=== PATIENT | male | born 1990 | race Caucasian/White ===

== ENCOUNTER 2018-01-11 11:34 | Emergency (ER) | payer SELFPAY ==
[2018-01-11 11:42] VITALS: BP 132/80; PULSE 92; RESP 15; TEMP 36.8; O2SAT 98
--- NOTE | 2018-01-11 12:33 | ED.GENADUL ---
Disposition Clinical Impression: Skin irritation Disposition: HOME Condition: Stable Instructions: Abrasion (ED) Additional Instructions: If you start noticing vesicles/rash that appears in the same area of discomfort please feel free to return to the emergency department for reassessment or follow-up with your primary care provider for recheck. It is preferred that you do this within the first 48 hours of these occurring to start possible therapy for shingles if that is what this is. Otherwise it is recommended due to high suspicion of superficial irritation from your T-shirt to wear a short sleeve shirt to see if this improves your symptoms. Referrals: Yves Smith MD [Primary Care Provider] - (As needed for reassessment if not improving.) Medical Decision Making - Medical Decision Making Patient presenting to the emergency department with concern for possible shingles. He states 2-3 days of localized irritation to the right posterior shoulder under the axilla and to the chest wall. Physical exam is unremarkable for any rash or vesicular findings but of notation is patient also has sparks line in the same pattern and states he always wears cut off T-shirts. Patient is not in any severe pain and pain is not persistent along the dermatome and the discomfort seems to be through multiple dermatomes not just through 1. I think patient's symptoms are more consistent with localized skin irritation and possible micro abrasions due to irritation from that T-shirt more than shingles at this time. Patient was thoroughly educated on shingles and the need to return within 48 hours if he begins having appearance of rash otherwise to wear short sleeve T-shirt and set of cut off and see if this improves his symptoms. Patient was agreeable to this and states that there were risk for prophylactically just starting shingles medication without any appearance of rash along with this being 3 days into it I would suspect rash to be present. Patient is agreeable to returning for any worsening of symptoms and just watchful waiting. After discussion of diagnosis and plan of care with patient patient agreed and stated no further needs, questions, or concerns at this time. History of Present Illness - General Chief complaint: RashLesion Stated complaint: SHINGLES Time Seen by Provider: 01/11/18 12:33 Source: patient, RN notes reviewed Mode of arrival: ambulatory Limitations: no limitations - History of Present Illness Initial comments: Patient reports 3 days ago he started noticing some irritation to his skin on his right side of his back underneath his arm and onto his chest. He states that he previously had shingles when he was a kid and is wondering if there is recurrence. Patient states that he has not noticed any rash appear but is mostly concerned that if it is shingles his girlfriend has never had the chickenpox and so he did not want to get her ill or sick. Patient denies any fever chills, chest pain, shortness of breath or difficulty breathing. Onset/Timin -: days(s) Location: back, right Severity scale (1-10): 5 Quality: aching Consistency: constant Improves with: none Worsens with: none Associated Symptoms: denies other symptoms Treatments Prior to Arrival: none - Related Data Unknown [No Known Home Meds] 01/11/18 Allergies Allergy/AdvReac Type Severity Reaction Status Date / Time acetaminophen Allergy Unknown SWOLLEN Unverified 01/11/18 11:46 LIPS amoxicillin Allergy Unverified 01/11/18 11:46 ibuprofen Allergy chest Unverified 01/11/18 11:47 tightness naproxen sodium [From Aleve] Allergy HIVES Unverified 01/11/18 11:46 Review of Systems Constitutional: no symptoms reported ENT: denies: throat pain Respiratory: no symptoms reported Skin: as per HPI. denies: rash, lesions, change in color Comment: All other systems reviewed and negative Past Medical History - Past Medical History Medical history: no medical history Surgical history: no surgical history - Social History Smoking status: current everyday smoker Alcohol use: rarely Drug use: none General Exam - General Limitations: no limitations General appearance: alert, in no apparent distress - ENT ENT exam: Present: normal orophraynx - Respiratory Respiratory exam: Present: normal lung sounds bilaterally, other (Patient does have slight tenderness to palpation of skin from right mid scapula underneath the axilla and into the chest wall. There is no signs of erythema, vesicular rash, excoriation.). Absent: respiratory distress, wheezes, rales, rhonchi, stridor - Cardiovascular Cardiovascular Exam: Present: regular rate, normal rhythm, normal heart sounds - Neurological Exam Neurological exam: Present: alert, oriented X3. Absent: altered - Skin Skin exam: Present: warm, dry, intact, normal color. Absent: rash, erythema, vesicles Course Vital Signs - 24 hr 01/11/18 11:42 Temperature 36.8 C Pulse 92 H Respiratory 15 Rate Blood Pressure 132/80 Pulse Oximetry 98
== END 2018-01-11 12:44 | disposition home or self-care (01) ==
PROVIDERS: Emergency Provider Student in an Organized Health Care Education/Training Program; PCP Family Medicine
DX: R21 Rash and other nonspecific skin eruption (principal); Z71.1 Person with feared health complaint in whom no diagnosis is made
CPT/HCPCS: 99281

== ENCOUNTER 2018-04-22 06:22 | Emergency (ER) | payer SELFPAY ==
[2018-04-22 06:27] VITALS: BP 132/82; PULSE 87; RESP 16; TEMP 36.8; O2SAT 97
--- NOTE | 2018-04-22 06:45 | W.ED.GENAD ---
Discharge Plan Disposition Patient Disposition: HOME Condition: Stable Discharge Details Chief Complaint: Sorethroat Clinical Impression: Pharyngitis Primary Care Provider: Yves Smith ED Provider: Vasquez Maldonado Home Meds and New Rx's Prescriptions: No Action No Known Home Meds RF: 0 Discharge Instructions Instructions: Pharyngitis (ED) Additional Instructions: Small, frequent sips of fluids to maintain hydration. We will call you if your strep culture is positive. Return to the emerge department for any acute concerns. Discharge Data Discharge Date/Time-TO BE ENTERED AT DEPARTURE: 04/22/18 06:53 Medical Decision Making 27-year-old male presents with sore throat over 2 days time. He is afebrile, well-appearing, with reassuring exam. Differential diagnosis includes viral process versus streptococcal pharyngitis. Rapid strep test obtained and negative. It is being sent for culture. Patient offered a single dose of oral dexamethasone for its anti-inflammatory properties, which he ultimately decided to decline. Discussed with him home management, return precautions. He stable for outpatient management, will need to be contacted should his culture become positive HPI General Mode of arrival: ambulatory. Date/Time Provider Initiated Documentation: 04/22/18 06:41. Limitations to Documentation: no limitations. Information obtained by: patient. History of Present Illness 27 year old M presents to the emergency department with the chief complaint of Sore throat times 2 days, described as moderate, Quality is described as aching, Patient reports no radiation. Patient started experiencing this day(s) and it has been constant. No relieving factors improve symptom(s), Eating worsens symptoms . Patient notes denies fever/chills and nausea/vomiting. Patient did receive the following treatments prior to arrival, none Related Data Home Medications Medication Instructions Recorded Confirmed Unknown [No Known Home Meds] 01/11/18 04/22/18 Allergies Allergy/AdvReac Type Severity Reaction Status Date / Time acetaminophen Allergy Unknown SWOLLEN Unverified 04/22/18 06:30 LIPS amoxicillin Allergy Unverified 04/22/18 06:30 ibuprofen Allergy chest Unverified 04/22/18 06:30 tightness naproxen sodium [From Aleve] Allergy HIVES Unverified 04/22/18 06:30 General Stated Complaint: Sorethroat DONNA: 5 Review of Systems Review of Systems For systems reviewed and otherwise negative PFSH Social History Smoking/Tobacco Use Status: Current every day Exam Narrative Exam Narrative: GEN: awake, alert, oriented 3. Pleasant, well groomed, interactive. HEAD: Normocephalic, atraumatic ENT: Mucous membranes moist, oropharynx erythematous without exudate and without swelling or asymmetry, External ear exam unremarkable, tympanic membranes clear bilaterally EYES: PERRL, EOMI NECK: Full ROM, no DARELL, no menigismus CHEST/RESP: Nontender, clear to auscultation bilateral, no wheeze/rhonchi/rales CARDIOVASCULAR: RRR, no murmur, rub marlen. 2+ Rad pulse bilateral ABDOMEN: Soft, nontender, no mass. +Bowel sounds EXT: Full ROM, no edema, no rash Neuro: Grossly normal neurologic exam, conversant, interactive. Psych: Speech fluent, thoughts congruent, affect normal Course Vital Signs Temperature 36.8 C 04/22/18 06:27 Pulse 87 04/22/18 06:27 Respiratory Rate 16 04/22/18 06:27 Blood Pressure 132/82 04/22/18 06:27 Pulse Oximetry 97 04/22/18 06:27 Temperature 36.8 C 04/22/18 06:27 Temperature Source Skin 04/22/18 06:27 Pulse 87 04/22/18 06:27 Respiratory Rate 16 04/22/18 06:27 Respiratory Effort Non-Labored 04/22/18 06:29 Blood Pressure 132/82 04/22/18 06:27 Pulse Oximetry 97 04/22/18 06:27 Pain Level 5 04/22/18 06:27 Lab/Test Results Lab/Test Results: 04/22/18 06:41 Tonsil - Not Specified Streptococcus Screen (EDMUND) - Pending POC Strep Test-GAYLA(Rapid) Start: 04/22/18 06:30 Freq: .Rapid Strep Test Status: Active Protocol: Document 04/22/18 06:41 SF (Rec: 04/22/18 06:41 [id number]) Strep test-GAYLA(Rapid)-POC POC-Strep test-GAYLA (Rapid) Negative POC-Strep test-GAYLA (Rapid) Negative
--- NOTE | 2018-04-22 06:48 | ED.GENADUL_ITS ---
Discharge Plan Disposition Patient Disposition: HOME Condition: Stable Discharge Details Chief Complaint: Sorethroat Clinical Impression: Pharyngitis Primary Care Provider: Yves Smith ED Provider: Vasquez Maldonado Home Meds and New Rx's Prescriptions: No Action No Known Home Meds RF: 0 Discharge Instructions Instructions: Pharyngitis (ED) Additional Instructions: Small, frequent sips of fluids to maintain hydration. We will call you if your strep culture is positive. Return to the emerge department for any acute concerns. Discharge Data Discharge Date/Time-TO BE ENTERED AT DEPARTURE: 04/22/18 06:53 Medical Decision Making 27-year-old male presents with sore throat over 2 days time. He is afebrile, well-appearing, with reassuring exam. Differential diagnosis includes viral process versus streptococcal pharyngitis. Rapid strep test obtained and negative. It is being sent for culture. Patient offered a single dose of oral dexamethasone for its anti-inflammatory properties, which he ultimately decided to decline. Discussed with him home management, return precautions. He stable for outpatient management, will need to be contacted should his culture become positive HPI General Mode of arrival: ambulatory . Date/Time Provider Initiated Documentation: 04/22/18 06:41 . Limitations to Documentation: no limitations . Information obtained by: patient . History of Present Illness 27 year old M presents to the emergency department with the chief complaint of Sore throat times 2 days, described as moderate, Quality is described as aching, Patient reports no radiation. Patient started experiencing this day( s) and it has been constant. No relieving factors improve symptom(s), Eating worsens symptoms . Patient notes denies fever/chills and nausea/ vomiting. Patient did receive the following treatments prior to arrival, none Related Data Home Medications Medication Instructions Recorded Confirmed Unknown [No Known Home Meds] 01/11/18 04/22/18 Allergies Allergy/AdvReac Type Severity Reaction Status Date / Time acetaminophen Allergy Unknown SWOLLEN Unverified 04/22/18 06:30 LIPS amoxicillin Allergy Unverified 04/22/18 06:30 ibuprofen Allergy chest Unverified 04/22/18 06:30 tightness naproxen sodium [From Aleve] Allergy HIVES Unverified 04/22/18 06:30 General Stated Complaint: Sorethroat DONNA: 5 Review of Systems Review of Systems For systems reviewed and otherwise negative PFSH Social History Smoking/Tobacco Use Status: Current every day Exam Narrative Exam Narrative: GEN: awake, alert, oriented 3. Pleasant, well groomed, interactive. HEAD: Normocephalic, atraumatic ENT: Mucous membranes moist, oropharynx erythematous without exudate and without swelling or asymmetry, External ear exam unremarkable, tympanic membranes clear bilaterally EYES: PERRL, EOMI NECK: Full ROM, no DARELL, no menigismus CHEST/RESP: Nontender, clear to auscultation bilateral, no wheeze/rhonchi/rales CARDIOVASCULAR: RRR, no murmur, rub marlen. 2+ Rad pulse bilateral ABDOMEN: Soft, nontender, no mass. +Bowel sounds EXT: Full ROM, no edema, no rash Neuro: Grossly normal neurologic exam, conversant, interactive. Psych: Speech fluent, thoughts congruent, affect normal Course Vital Signs Temperature 36.8 C 04/22/18 06:27 Pulse 87 04/22/18 06:27 Respiratory Rate 16 04/22/18 06:27 Blood Pressure 132/82 04/22/18 06:27 Pulse Oximetry 97 04/22/18 06:27 Temperature 36.8 C 04/22/18 06:27 Temperature Source Skin 04/22/18 06:27 Pulse 87 04/22/18 06:27 Respiratory Rate 16 04/22/18 06:27 Respiratory Effort Non-Labored 04/22/18 06:29 Blood Pressure 132/82 04/22/18 06:27 Pulse Oximetry 97 04/22/18 06:27 Pain Level 5 04/22/18 06:27 Lab/Test Results Lab/Test Results: 04/22/18 06:41 Tonsil - Not Specified Streptococcus Screen (EDMUND) - Pending POC Strep Test-GAYLA(Rapid) Start: 04/22/18 06: 30 Freq: .Rapid Strep Test Status: Active Protocol: Document 04/22/18 06:41 SF (Rec: 04/22/18 06:41 [id number]) Strep test-GAYLA(Rapid)-POC POC-Strep test-GAYLA (Rapid) Negative POC-Strep test-GAYLA (Rapid) Negative
== END 2018-04-22 06:53 | disposition home or self-care (01) ==
LOC: ER 06:54
PROVIDERS: Emergency Provider Emergency Medicine; PCP Family Medicine
DX: J02.9 Acute pharyngitis, unspecified (principal); F17.210 Nicotine dependence, cigarettes, uncomplicated
CPT/HCPCS: 87880; 99282; 87081; J8540

== ENCOUNTER 2018-07-16 07:44 | Emergency (ER) | payer SELFPAY ==
[2018-07-16 07:55] VITALS: BP 148/65; PULSE 82; RESP 16; TEMP 37; O2SAT 99
--- NOTE | 2018-07-16 08:29 | W.ED.GENAD ---
Discharge Plan Disposition Patient Disposition: HOME Condition: Stable Discharge Details Chief Complaint: Sorethroat Clinical Impression: Pharyngitis Primary Care Provider: Yves Smith ED Provider: Willie Moon Home Meds and New Rx's Prescriptions: No Action No Known Home Meds RF: 0 Discharge Instructions Instructions: Pharyngitis (ED) Additional Instructions: He may use [id number] sore throat medication just take as directed on packaging. You may also use [id number] Zicam as directed on packaging to see if this helps reduce the duration of your symptoms. For any fever you may take acetaminophen. Feel free to return to the emergency department as needed or follow-up with primary care if not improving over the next week Stand Alone Forms: Work Release Referrals: Yves Smith MD [Primary Care Provider] - (As needed for reassessment) Medical Decision Making Patient presenting the emergency department for chief complaint of sore throat. Patient states some associated fever and that he has been around many sick coworkers that have been out with the flu. Patient denies any cough, nasal congestion, stiff neck, headache, body aches. Physical exam shows mild tonsillary erythema without exudates, very mild anterior cervical lymphadenopathy otherwise unremarkable exam. No signs of peritonsillar retropharyngeal abscess, meningitis, epiglottitis. Patient recommended to rest, stay well-hydrated, and take [id number] therapies to reduce his symptoms. Patient encouraged to return for any further concerns or follow-up with primary care if not improving. After discussion of diagnosis and plan of care patient has no further needs, questions, or concerns and states clear understanding to return to the emergency department for any worsening symptoms. HPI General Mode of arrival: ambulatory. Date/Time Provider Initiated Documentation: 07/16/18 08:07. Limitations to Documentation: no limitations. Information obtained by: patient and RN notes reviewed. History of Present Illness 27 year old M presents to the emergency department with the chief complaint of sore throat, described as moderate, with intensity rated at 6. Quality is described as aching, Patient started experiencing this day(s) (1) and it has been constant. No relieving factors improve symptom(s), Patient did receive the following treatments prior to arrival, none Related Data Home Medications Medication Instructions Recorded Confirmed Unknown [No Known Home Meds] 01/11/18 07/16/18 Allergies Allergy/AdvReac Type Severity Reaction Status Date / Time acetaminophen Allergy Unknown SWOLLEN Unverified 07/16/18 07:58 LIPS amoxicillin Allergy Unverified 07/16/18 07:58 ibuprofen Allergy chest Unverified 07/16/18 07:58 tightness naproxen sodium [From Aleve] Allergy HIVES Unverified 07/16/18 07:58 General Stated Complaint: Sorethroat DONNA: 4 Review of Systems Constitutional Denies chills, Reports fever(s), Denies headache(s) and Denies malaise ENT Denies change in voice, Denies dysphagia, Denies otalgia, Denies headache(s), Denies hoarseness, Denies lip swelling, Denies mouth lesions, Denies nasal congestion, Reports odynophagia, Reports sore throat, Denies throat swelling and Denies tongue swelling Cardiovascular Denies chest pain Respiratory Denies chest congestion and Denies cough Gastrointestinal Denies dysphagia and Reports odynophagia Neurologic Denies headache(s) Allergic/Immunologic Denies lip swelling, Denies throat swelling and Denies tongue swelling [facility] Social History Smoking/Tobacco Use Status: Current every day Exam Const General: cooperative, healthy appearing, comfortable, no acute distress and not ill appearing Orientation: alert, awake and oriented x3 HENMT Head: normal to inspection and normocephalic Ears: hearing grossly normal bilaterally, external ears normal, TM's normal bilaterally and mastoids normal General nose exam: external nose normal and nares normal Face and sinus: normal facial exam and sinuses nontender Mouth: oral mucosae normal, lip normal, tongue normal, no audible dysphonia, no drooling and no trismus Throat: uvula midline, abnormal tonsil bilaterally erythema and no peritonsillar masses Neck Neck: normal visual inspection, full ROM, no lymphadenopathy and no meningeal signs Resp Effort & Inspection: normal respiratory effort, able to speak in complete sentences and no stridor Auscultation: clear to auscultation bilaterally Cardio Rate: regular rate Rhythm: regular rhythm Heart Sounds: S1 normal and S2 normal Skin General skin exam: no rashes or lesions noted Course Vital Signs Temperature 37 C 07/16/18 07:55 Pulse 82 07/16/18 07:55 Respiratory Rate 16 07/16/18 07:55 Blood Pressure 148/65 H 07/16/18 07:55 Pulse Oximetry 99 07/16/18 07:55 Temperature 37 C 07/16/18 07:55 Temperature Source Skin 07/16/18 07:55 Pulse 82 07/16/18 07:55 Respiratory Rate 16 07/16/18 07:55 Respiratory Effort 07/16/18 07:55 Blood Pressure 148/65 H 07/16/18 07:55 Blood Pressure Position Sitting 07/16/18 07:55 Pulse Oximetry 99 07/16/18 07:55 Oxygen Delivery Method Room Air 07/16/18 07:55 Oxygen Flow Rate 0 07/16/18 07:55 Pain Level 6 07/16/18 07:55 Lab/Test Results Lab/Test Results: 07/16/18 08:00 Pharynx Streptococcus Screen (EDMUND) - Pending POC Strep Test-GAYLA(Rapid) Start: 07/16/18 08:11 Freq: .Rapid Strep Test Status: Active Protocol: Document 07/16/18 08:12 MMQ (Rec: 07/16/18 08:12 [id number] [id number]) Strep test-GAYLA(Rapid)-POC POC-Strep test-GAYLA (Rapid) Negative POC-Strep test-GAYLA (Rapid) Negative
== END 2018-07-16 08:40 | disposition home or self-care (01) ==
PROVIDERS: Emergency Provider Nurse Practitioner Family; PCP Family Medicine
DX: J02.9 Acute pharyngitis, unspecified (principal); F17.210 Nicotine dependence, cigarettes, uncomplicated
CPT/HCPCS: 87880; 99282; 87081

== ENCOUNTER 2019-07-27 06:23 | Emergency (ER) | payer OTHER, SELFPAY ==
[2019-07-27 06:27] VITALS: BP 134/92; PULSE 89; RESP 16; TEMP 36.7; O2SAT 98
--- NOTE | 2019-07-27 06:32 | W.ED.GENAD ---
Discharge Plan Disposition Patient Disposition: HOME Condition: Stable Discharge Details Chief Complaint: Orthopedic Clinical Impression: Nontraumatic shoulder pain Primary Care Provider: Octavio Vazquez ED Provider: Dwayne Carr Home Meds and New Rx's Prescriptions: New lidocaine 4 % adhesive patch,medicated 1 patch TP DAILY PRN (Reason: pain) Qty: 6 RF: 0 Discharge Instructions Instructions: Shoulder Pain (ED) Additional Instructions: follow up with your primary care provider if pain is not improving this week if you have severe worsening pain, fevers, redness of the skin or chest pain/pressure return to the emergency department Stand Alone Forms: Work Release Medical Decision Making 28 yo male who denies chronic medical problems comes in with pain in right shoulder for a day. He states he slept funny and woke up with pain in both shoulders but right greater than left. No fevers, chest pain, trauma, falls. HAsn't taken anything for the pain, states he has had this happen before and had relief with toradol and lidocaine patches. He has pain with palpation of the posterior shoulder, full rom, normal sensation and pulses. His exam is consistent with musculoskeletal pain, likely strain. No trauma and full rom so doubt fx and do not feel xrays indicated. NO symptoms or findings to suggest septic joint and pain is in both arms. Normal vascular exam, no tearing back pain and no chest pain or pressure or sob so doubt acs or dissection or pe. Will tx with toradol and lidocaine patches, advised f/u with pcp and return precautions given Differential Diagnosis Differential Diagnosis: spasm, strain, rotator cuff injury HPI General Mode of arrival: ambulatory. Date/Time Provider Initiated Documentation: 07/27/19 06:24. Limitations to Documentation: no limitations. Information obtained by: patient. History of Present Illness 28 year old M presents to the emergency department with the chief complaint of shoulder pain, described as moderate, and it has been constant. No relieving factors improve symptom(s), No exacerbating factors reported . Patient did receive the following treatments prior to arrival, none Related Data Home Medications Medication Instructions Recorded Confirmed lidocaine 1 patch TP DAILY PRN #6 each 07/27/19 Previous Rx's Medication Instructions Recorded lidocaine 1 patch TP DAILY PRN #6 each 07/27/19 Allergies Allergy/AdvReac Type Severity Reaction Status Date / Time acetaminophen Allergy Unknown SWOLLEN Unverified 07/11/19 08:30 LIPS amoxicillin Allergy Unverified 07/11/19 08:30 ibuprofen Allergy chest Unverified 07/11/19 08:30 tightness naproxen sodium [From Aleve] Allergy HIVES Unverified 07/11/19 08:30 General Stated Complaint: Orthopedic DONNA: 4 Review of Systems All systems reviewed & are unremarkable except as noted in HPI and below Constitutional Constitutional: Denies chills, Denies fever(s) and Denies weakness Cardiovascular Cardiovascular: Denies chest pain and Denies dyspnea Respiratory Respiratory: Denies cough and Denies dyspnea Gastrointestinal Gastrointestinal: Denies abdominal pain, Denies nausea and Denies vomiting Musculoskeletal Musculoskeletal: Denies joint swelling Neurologic Neurologic: Denies weakness [facility] Social History Smoking/Tobacco Use Status: Current every day Tobacco Type: cigarettes Alcohol Intake: current Alcohol Intake frequency: a few times a week Drug use: Never Do you feel safe in your relationship?: Yes Exam Const General: no acute distress Orientation: alert HENMT Head: normal to inspection Ears: external ears normal General nose exam: external nose normal Mouth: moist mucous membranes Eyes General: appearance normal, both eyes and all related structures Neck Neck: normal visual inspection Resp Effort & Inspection: normal respiratory effort and able to speak in complete sentences Cardio Rate: regular rate Skin General skin exam: no rashes or lesions noted Neuro General: alert and oriented x3 Extrem General: normal to inspection, full ROM and normal capillary refill Psych Mental Status: mental status grossly normal Course Vital Signs Vital signs: Vital Signs Temperature 36.7 C 07/27/19 06:27 Pulse 89 07/27/19 06:27 Respiratory Rate 16 07/27/19 06:27 Blood Pressure 134/92 H 07/27/19 06:27 Pulse Oximetry 98 07/27/19 06:27 Temperature 36.7 C 07/27/19 06:27 Temperature Source Temporal Artery Scan 07/27/19 06:27 Pulse 89 07/27/19 06:27 Respiratory Rate 16 07/27/19 06:27 Blood Pressure 134/92 H 07/27/19 06:27 Pulse Oximetry 98 07/27/19 06:27 Oxygen Delivery Method Room Air 07/27/19 06:27 Oxygen Flow Rate 0 07/27/19 06:27 Pain Level 10 07/27/19 06:27
[2019-07-27] MEDS: Ketorolac 30 MG/ML VIAL IM (06:40)
[2019-07-27] MEDS: Lidocaine 5% Patch 1 PATCH TP (06:45)
== END 2019-07-27 06:49 | disposition home or self-care (01) ==
PROVIDERS: Emergency Provider Emergency Medicine; PCP Family Medicine
DX: M25.511 Pain in right shoulder (principal); M25.512 Pain in left shoulder
CPT/HCPCS: 96372; 99284; 99283; J1885

== ENCOUNTER 2019-12-14 11:55 | Emergency (ER) | payer OTHER, SELFPAY ==
[2019-12-14 12:05] VITALS: BP 141/97; PULSE 84; TEMP 36.8; O2SAT 100
--- NOTE | 2019-12-14 12:12 | W.ED.GENAD ---
Discharge Plan Disposition Patient Disposition: HOME Condition: Good Discharge Details Chief Complaint: ThroatFB Clinical Impression: Acid reflux Primary Care Provider: Octavio Vazquez ED Provider: Gabbie El Home Meds and New Rx's Prescriptions: New omeprazole 20 mg capsule,delayed release(DR/EC) 20 mg PO DAILY Qty: 14 RF: 0 Discharge Instructions Instructions: Gastroesophageal Reflux Disease (ED) Additional Instructions: Please try to cut back on coffee, hot sauce and smoking as discussed. Encourage water intake. Please take medication as prescribed. This will take time to go away. I have referred to general surgery for further evaluation. If you develop shortness of breath, difficulty breathing, increased pain, inability stay hydrated or other new/worsening symptom please seek care urgently once again. Referrals: Octavio Vazquez. [Primary Care Provider] - Discharge Data Discharge Date/Time-TO BE ENTERED AT DEPARTURE: 12/14/19 13:01 Medical Decision Making Patient is a pleasant 29-year-old gentleman presenting today with chief complaint of throat pain. Reports that he has a slight foreign body sensation but describes this from there there is burning particularly worse with eating. States that this is maximal with swallowing particularly when drinking acidic foods such as coffee. Patient states that he has had this historically. Does have a history of acid reflux. Has not been taking any medications for this. Denies any chest pain. No shortness of breath. Denies any rash. No difficulty breathing. Denies any URI symptoms. He is indicating how much lower than typical sore throat associated with infection. States that this came on slowly and is progressively increased over the past 2 days. On exam, patient is resting comfortably. He is handling secretions well. Normal findings on HEENT exam. No abnormalities with exam of his throat. No palpable abnormalities of thyroid or anterior neck. Lungs are clear. No evidence of reaction. Patient I discussed differentials. Has this does seem to be worse with drinking acidic foods, I am primarily concerned for esophagitis likely caused by GERD. We discussed foods that he should avoid. We will place him on a omeprazole. Patient is a smoker, we did discuss the risk associated with this and this may also be exacerbating. Encourage smoking cessation, cutting back on caffeine as well as spicy foods. He was given strict return precautions. I will refer to general surgery. Advise given the foreign body sensation and if pain persists, he may need an EGD but will defer to them for further evaluation. Patient was given return precautions. All his questions and concerns were addressed and he is in agreement this plan HPI General Mode of arrival: ambulatory. Date/Time Provider Initiated Documentation: 12/14/19 12:12. Limitations to Documentation: no limitations. Information obtained by: patient and RN notes reviewed. History of Present Illness 29 year old M presents to the emergency department with the chief complaint of burning sensation in throat, described as moderate, Quality is described as burning, and is localized to the mouth. Patient reports no radiation. Patient started experiencing this day(s) (2) and it has been constant. No relieving factors improve symptom(s), Eating worsens symptoms (particularly acid food such as coffee) . Patient notes no other symptoms.; denies chest pain, cough, diaphoresis, fever/chills, loss of appetite, nausea/vomiting, rash and shortness of breath. Patient did receive the following treatments prior to arrival, none Related Data Home Medications Medication Instructions Recorded Confirmed omeprazole 20 mg PO DAILY #14 cap 12/14/19 Previous Rx's Medication Instructions Recorded omeprazole 20 mg PO DAILY #14 cap 12/14/19 Allergies Allergy/AdvReac Type Severity Reaction Status Date / Time acetaminophen Allergy Unknown SWOLLEN Unverified 12/14/19 12:09 LIPS amoxicillin Allergy Unverified 12/14/19 12:09 ibuprofen Allergy chest Unverified 12/14/19 12:09 tightness naproxen sodium [From Aleve] Allergy HIVES Unverified 12/14/19 12:09 General Stated Complaint: ThroatFB DONNA: 4 Review of Systems Constitutional Constitutional: Reports as per HPI, Denies chills, Denies fever(s), Denies headache(s), Denies increased appetite and Denies poor appetite Eyes Eyes: Reports as per HPI, Denies eye discharge and Denies irritation ENT Ears, Nose, Mouth, and Throat: Reports as per HPI, Denies headache(s) and Reports odynophagia (This is substance dependent, worse with acidic foods) Cardiovascular Cardiovascular: Reports as per HPI, Denies chest pain and Denies dyspnea Respiratory Respiratory: Reports as per HPI and Denies dyspnea Gastrointestinal Gastrointestinal: Reports as per HPI, Denies abdominal pain, Denies change in bowel habits, Denies nausea, Reports odynophagia (This is substance dependent, worse with acidic foods) and Denies vomiting Integumentary/Breasts Skin/Breast: Reports as per HPI and Denies rash Neurologic Neurologic: Reports as per HPI and Denies headache(s) [facility] Social History Smoking/Tobacco Use Status: Current every day Tobacco Type: cigarettes Alcohol Intake: current Alcohol Intake frequency: a few times a week Drug use: Never Substance use type: does not use Do you feel safe at home: Yes Do you feel safe in your relationship?: Yes Exam Const General: cooperative, healthy appearing, comfortable, no acute distress, well developed and well groomed Nutritional Appearance: average body habitus and well nourished Orientation: alert and awake [facility] Head: normal to inspection, normocephalic and atraumatic Ears: hearing grossly normal bilaterally General nose exam: external nose normal Face and sinus: normal facial exam and face symmetric Mouth: oral mucosae normal, lip normal, tongue normal, oropharynx normal and moist mucous membranes Teeth and gingiva: dentition normal Throat: posterior oropharynx normal, tonsils normal and uvula midline Eyes General: appearance normal, both eyes and all related structures Neck Neck: normal visual inspection, full ROM, no lymphadenopathy, no meningeal signs, trachea midline, supple, no anterior neck swelling, no lymphadenopathy noted and no midline deformity Thyroid: thyroid normal Lymphatic: no lymphadenopathy noted Resp Effort & Inspection: normal respiratory effort, able to speak in complete sentences and no respiratory distress Auscultation: clear to auscultation bilaterally, no rales, no rhonchi and no wheezes Cardio Rate: regular rate Rhythm: regular rhythm Heart Sounds: S1 normal and S2 normal Skin General skin exam: no rashes or lesions noted Neuro General: patient alert and patient awake Cognition: normal cognition Speech: speech normal Gait: normal gait Psych Appearance: grossly normal and well kempt Mental Status: mental status grossly normal Speech and Movement: speech and movement normal Course Vital Signs Vital signs: Vital Signs Temperature 36.8 C 12/14/19 12:05 Pulse 84 12/14/19 12:05 Blood Pressure 141/97 H 12/14/19 12:05 Pulse Oximetry 100 12/14/19 12:05 Temperature 36.8 C 12/14/19 12:05 Temperature Source Temporal Artery Scan 12/14/19 12:05 Pulse 84 12/14/19 12:05 Respiratory Effort Non-Labored 12/14/19 12:10 Respiratory Pattern Normal 12/14/19 12:10 Blood Pressure 141/97 H 12/14/19 12:05 Blood Pressure Position Sitting 12/14/19 12:05 Pulse Oximetry 100 12/14/19 12:05 Oxygen Delivery Method Room Air 12/14/19 12:05 Oxygen Flow Rate 0 12/14/19 12:05
--- NOTE | 2019-12-14 16:55 | NUR.NOTE ---
referral faxed to [facility]Nursing Note:
== END 2019-12-14 13:01 | disposition home or self-care (01) ==
PROVIDERS: Emergency Provider Physician Assistant; PCP Family Medicine
DX: K21.9 Gastro-esophageal reflux disease without esophagitis (principal); F17.200 Nicotine dependence, unspecified, uncomplicated
CPT/HCPCS: 99283

== ENCOUNTER 2020-05-04 08:29 | Outpatient (CLI) | payer OTHER, SELFPAY ==
[2020-05-06 19:11] LABS: Patient Race White; SARS-CoV-2 RNA Undetected (Undetected); SARS-CoV-2 Specimen Source Nasal
== END 2020-05-04 08:49 ==
PROVIDERS: PCP Family Medicine; Visit Provider Family Medicine
DX: J02.9 Acute pharyngitis, unspecified (principal)
CPT/HCPCS: U0003

== ENCOUNTER 2020-06-28 08:29 | Emergency (ER) | payer OTHER, SELFPAY ==
[2020-06-28 08:38] VITALS: BP 126/88; PULSE 96; RESP 20; TEMP 36.5; O2SAT 97
--- NOTE | 2020-06-28 08:44 | ED.GENADUL_ITS ---
Discharge Plan Disposition Patient Disposition: HOME Condition: Stable Discharge Details Clinical Impression: Laceration of right thumb Primary Care Provider: Octavio Vazquez ED Provider: Malia Yoder Home Meds and New Rx's Prescriptions: No Action ciprofloxacin HCl 500 mg tablet 500 mg PO BID RF: 0 Discharge Instructions Instructions: Laceration (ED), Skin Adhesive Care (ED) Additional Instructions: Keep clean and dry. May wash it daily under running soap and water. Dab dry. Do not scrub or pick the tissue adhesive off. It will start to slough off on its own within 4 to 6 days. Return to the ED for any signs of infection including increased redness, swelling, red streaks up the thumb or any concerns. Follow up with primary care provider in 3-5 days. Return to ED sooner if any worsening or concerns. Increase oral fluids. Stand Alone Forms: Work Release Referrals: Octavio Vazquez. [Primary Care Provider] - Discharge Data Discharge Date/Time-TO BE ENTERED AT DEPARTURE: 06/28/20 09:13 Medical Decision Making 29-year-old male presents to the ED with chief complaint of right thumb avulsion just prior to arrival. Patient was using a oilseed meat presser and sustained a laceration noted to the distal tip of his. Bleeding is controlled upon arrival. He has full range of motion of the digit. Patient reports he is currently on antibiotics (Cipro) for tonsillitis. Wound care performed and tissue using applied as per procedure note above. Patient tolerated this with small amount of difficulty. Bleeding was controlled the entire visit. He remained hemodynamically stable. Discussed home care and discuss strict return instructions, verbalized understanding. This text was generated using [employer] system, please disregard any oddities of phrase or misspellings. HPI General Mode of arrival: ambulatory . Date/Time Provider Initiated Documentation: 06/28/20 08:33 . Limitations to Documentation: no limitations . Information obtained by: patient . HPI Narrative: 29-year-old male presents to the ED with chief complaint of right thumb avulsion just prior to arrival. Patient was using a oilseed meat presser and sustained a laceration noted to the distal tip of his. Bleeding is controlled upon arrival. He has full range of motion of the digit. Patient reports he is currently on antibiotics (Cipro) for tonsillitis. Related Data Home Medications Medication Instructions Recorded Confirmed ciprofloxacin HCl 500 mg PO BID 06/28/20 06/28/20 Allergies Allergy/AdvReac Type Severity Reaction Status Date / Time acetaminophen Allergy Unknown SWOLLEN Verified 06/28/20 08:42 LIPS amoxicillin Allergy Verified 06/28/20 08:42 ibuprofen Allergy chest Verified 06/28/20 08:42 tightness naproxen sodium [From Aleve] Allergy HIVES Verified 06/28/20 08:42 General Stated Complaint: Laceration DONNA: 4 Review of Systems All systems reviewed & are unremarkable except as noted in HPI and below Integumentary/Breasts Skin/Breast: Reports wounds (Laceration/avulsion to the distal tip of his right thumb) [facility] Medical History Anxiety Social History Smoking/Tobacco Use Status: Current every day Tobacco Type: cigarettes Smoking risk assessment performed?: Yes Alcohol Intake: current Alcohol Intake frequency: a few times a week Drug use: Never Substance use type: does not use Do you feel safe at home: Yes Do you feel safe in your relationship?: Yes Exam Extrem Right upper extremity: hand Details: normal capillary refill, neuromotor exam normal, neurosensory exam normal, tendon exam normal and laceration thumb palmar aspect distal Details: avulsion (Approximately 1 cm in length by 0.5 cm width), involving subcutaneous tissue, with motor nerve function intact and with sensation intact; not with foreign body present, not contaminated and not involving muscle tissue Course Vital Signs Vital signs: Vital Signs Temperature 36.5 C 06/28/20 08:38 Pulse 96 H 06/28/20 08:38 Respiratory Rate 20 06/28/20 08:38 Blood Pressure 126/88 06/28/20 08:38 Pulse Oximetry 97 06/28/20 08:38 Temperature 36.5 C 06/28/20 08:38 Temperature Source Skin 06/28/20 08:38 Pulse 96 H 06/28/20 08:38 Respiratory Rate 20 06/28/20 08:38 Respiratory Effort Non-Labored 06/28/20 08:43 Blood Pressure 126/88 06/28/20 08:38 Blood Pressure Position Sitting 06/28/20 08:38 Pulse Oximetry 97 06/28/20 08:38 Oxygen Delivery Method Room Air 06/28/20 08:38 Oxygen Flow Rate 0 06/28/20 08:38 Pain Level 4 06/28/20 08:38 Procedures Laceration Laceration 1: Site: hand (Distal tip thumb) Side (If applicable): right Size (cm): 1 Description: irregular (Avulsion) Depth: simple, single layer Pre-repair: irrigated extensively Skin layer closed with: other (Dermabond tissue adhesive)
[2020-06-28 09:08] VITALS: BP 124/71; PULSE 86; RESP 18; TEMP 36.5; O2SAT 98
== END 2020-06-28 09:13 | disposition home or self-care (01) ==
PROVIDERS: Emergency Provider Registered Nurse Emergency; PCP Family Medicine
DX: S61.011A Laceration without foreign body of right thumb without damage to nail, initial encounter (principal); W31.82XA Contact with other commercial machinery, initial encounter
CPT/HCPCS: 12001; 90471

== ENCOUNTER 2020-07-09 18:20 | Outpatient (REF) | payer OTHER, SELFPAY ==
[2020-07-12 15:12] LABS: Chlamydia Result Negative (Negative); GC Result Negative (Negative)
== END 2020-07-09 18:40 ==
LOC: NCHCN 18:20
PROVIDERS: PCP Family Medicine; Visit Provider Physician Assistant
DX: N34.2 Other urethritis (principal)
CPT/HCPCS: 87491; 87591; 87086

== ENCOUNTER 2021-06-29 16:05 | Emergency (ER) | payer SELFPAY ==
[2021-06-29] VITALS (8 sets, daily range): BP systolic 131–144; BP diastolic 75–89; PULSE 78–97; RESP 13–21; TEMP 37.1; O2SAT 98–100
--- NOTE | 2021-06-29 16:00 | RT.EKG_ITS ---
APPROVED REPORT Exam: Resting ECG Reason for Exam: chest pain Patient Location: E HR:88 bpm ECG Measurements Heart Rate 88 AXIS CO 156 P 58 QRSd 119 QRS 12 QT 374 T 37 QTc 452 Conclusion Sinus rhythm...normal P axis Nonspecific intraventricular conduction delay
--- NOTE | 2021-06-29 16:00 | DI.RAD_ITS ---
Exam(s) XR PORTABLE CHEST AP EXAM: XR PORTABLE CHEST AP CLINICAL HISTORY: Chest Pain. TECHNIQUE: 2D digital imaging was performed. COMPARISON: CR CHEST 2 VIEWS PA,LAT from 12/15/2017 FINDINGS: LUNGS: Clear. No pleural abnormality seen. HEART: Normal. MEDIASTINUM: Normal. OTHER FINDINGS: None. IMPRESSION: No acute pulmonary findings. DATA REPOSITORY: RADIATION DOSE DELIVERED: Total DLP
--- NOTE | 2021-06-29 16:15 | W.ED.GENAD ---
Discharge Plan Disposition Patient Disposition: HOME Condition: Stable Discharge Details Clinical Impression: Costochondritis Primary Care Provider: Octavio Vazquez ED Provider: Malia Yoder Home Meds and New Rx's Prescriptions: No Action No Known Home Meds RF: 0 Discharge Instructions Instructions: Chest Wall Pain (ED) Additional Instructions: At this time your cardiac work-up is within normal limits, chest x-ray is clear, the lab test to check for blood clot in your lung is also within normal limits. EKG shows no evidence for abnormality. You may try lidocaine patches which you can get [id number]. Apply ice and heat. Follow up with primary care provider in 3-5 days. Return to ED sooner if any worsening or concerns. Increase oral fluids. Referrals: Octavio Vazquez MD [Primary Care Provider] - 5 days Discharge Data Discharge Date/Time-TO BE ENTERED AT DEPARTURE: 06/29/21 17:31 Medical Decision Making 30-year-old male presents to the ER with a chief complaint of left-sided chest pain which has been ongoing for the last 2 weeks. Patient reports that he has been on and off worse with certain movements. He denies any cough or shortness of breath. He reports that he has not been decided as increased pain. He denies any nausea vomiting diarrhea. He is a daily smoker. Past medical history includes anxiety Planter fasciitis. He recently had the second Moderna vaccination 2 weeks ago. EKG was reviewed by Dr. Maldonado ER attending, please see his official report. Work-up ordered including troponin and D-dimer portable chest x-ray. Differential diagnosis includes but not limited to costochondritis, musculoskeletal strain, pneumonia, PE, CAD. CXR: FINDINGS: LUNGS: Clear. No pleural abnormality seen. HEART: Normal. MEDIASTINUM: Normal. OTHER FINDINGS: None. IMPRESSION: No acute pulmonary findings. CBC largely unremarkable, D-dimer 117, CMP largely within normal limit bilirubin 1.1 just slightly high. Troponin less than 50. Patient has no abdominal pain with palpation. At this time I do feel that this is musculoskeletal. We will plan to discharge home with strict return instructions. This text was generated using [employer] system, please disregard any oddities of phrase or misspellings. HPI General Mode of arrival: ambulatory. Date/Time Provider Initiated Documentation: 06/29/21 16:13. Limitations to Documentation: no limitations. Information obtained by: patient, RN notes reviewed and old records reviewed. HPI Narrative: 30-year-old male presents to the ER with a chief complaint of left-sided chest pain which has been ongoing for the last 2 weeks. Patient reports that he has been on and off worse with certain movements. He denies any cough or shortness of breath. He reports that he has not been decided as increased pain. He denies any nausea vomiting diarrhea. He is a daily smoker. Past medical history includes anxiety Planter fasciitis. He recently had the second Moderna vaccination 2 weeks ago. Related Data Home Medications Medication Instructions Recorded Confirmed Unknown [No Known Home Meds] 06/29/21 06/29/21 Allergies Allergy/AdvReac Type Severity Reaction Status Date / Time acetaminophen Allergy Unknown SWOLLEN Verified 08/27/20 16:49 LIPS amoxicillin Allergy Verified 08/27/20 16:49 ibuprofen Allergy chest Verified 08/27/20 16:49 tightness naproxen sodium [From Aleve] Allergy HIVES Verified 08/27/20 16:49 General Stated Complaint: Chest Pain DONNA: 3 Review of Systems All systems reviewed & are unremarkable except as noted in HPI and below Cardiovascular Cardiovascular: Reports chest pain, Denies leg edema and Denies dyspnea Respiratory Respiratory: Denies dyspnea Musculoskeletal Musculoskeletal: Reports as per HPI PFSH All Active Problems (Updated 06/29/21 @ 17:24 by Malia Yoder) Costochondritis (Acute) Urethritis (Acute) Current smoker (Acute) Anxiety (Chronic) Nontraumatic shoulder pain (Acute) Achilles tendonitis (Acute) Plantar fasciitis (Acute) Tonsillar calculus (Chronic) Insomnia (Acute) Social History Smoking/Tobacco Use Status: Current every day Tobacco Type: cigarettes Smoking risk assessment performed?: Yes Alcohol Intake: current Alcohol Intake frequency: a few times a week Drug use: Occasionally Substance use type: marijuana Do you feel safe at home: Yes Do you feel safe in your relationship?: Yes Exam Narrative Exam Narrative: Constitutional: Alert and oriented x3. Appears stated age. Normal body habitus. Head: Normocephalic, no trauma. Eyes: Pupils PERRL, Red reflex noted, EOM's intact. Eyelids symmetrical without lesions, discharge, or swelling. ENT: Bilateral TM's WNL, External ear normal to inspection, no mastoid TTP, swelling, or erythema, Nasal turbinates WNL, no nasal discharge. Normal dentition, Posterior pharynx WNL, no exudate. Chest: RRR, Normal S1, S2, distal pulses intact. Resp: Lungs clear to auscultation bilaterally, no wheezes, rales, or rhonchi. Abdomen: Soft, non-distended, Normoactive bowel sounds all 4 quads. Musculoskeletal: Normal gait, 5/5 strength to all four extremities. Skin: No suspicious rashes or lesions. Capillary refill less than 2 sec. Neurologic: Cranial nerves II-XII intact. Alert and oriented x 3. Motor: No deficits noted. Sensory: Intact bilaterally all 4 extremities. Reflexes: DTR's intact bilaterally.. Hematologic/Lymphatic: No ecchymosis, no lymphadenopathy. Course Vital Signs Vital signs: Vital Signs Temperature 37.1 C 06/29/21 16:10 Pulse 97 H 06/29/21 16:10 Respiratory Rate 14 06/29/21 16:10 Blood Pressure 144/89 H 06/29/21 16:10 Pulse Oximetry 99 06/29/21 16:10 Temperature 37.1 C 06/29/21 16:10 Temperature Source Temporal Artery Scan 06/29/21 16:10 Pulse 97 H 06/29/21 16:10 Respiratory Rate 14 06/29/21 16:10 Blood Pressure 144/89 H 06/29/21 16:10 Blood Pressure Position Sitting 06/29/21 16:10 Pulse Oximetry 99 06/29/21 16:10 Oxygen Delivery Method Room Air 06/29/21 16:10 Oxygen Flow Rate 0 06/29/21 16:10 Pain Level 3 06/29/21 16:10
[2021-06-29 16:43] LABS: Abs Immature Grans 0.01 10^3/uL (0.0-0.06); Absolute Basophil Count 0.02 10^3/uL (0.0-0.2); Absolute Eosinophil Count 0.06 10^3/uL (0.0-0.7); Absolute Lymphocyte Count 1.47 10^3/uL (1.2-3.4); Absolute Neutrophil Count 3.41 10^3/uL (1.2-6.7); Basophils % 0.4; Eosinophils % 1.1; HCT 42.7 % (40.0-50.0); HGB 15.1 g/dL (13.5-17.5); Immature Grans % 0.2; Lymphocytes % 26.9; MCH 32.2 pg (27.0-33.0); MCHC 35.4 % (32.0-36.0); MPV 9.1 fL (8.0-11.0); Monocytes % 9.1; Neutrophils % 62.3; Nucleated RBC 0 %; Platelet Count 306 10^3/uL (130-400); RBC 4.69 10^6/uL (4.36-5.78); RDW 11.8 % (11.8-14.1); RDW-SD 39.2 fL; WBC 5.47 10^3/uL (4.4-10.8)
[2021-06-29 16:58] LABS: ALT 48 U/L (16-63); AST 19 U/L (15-37); Albumin 4.5 g/dL (3.4-5.0); Alkaline Phosphatase 72 U/L (46-116); Anion Gap 6.6 mmol/L (3-11); BUN 17 mg/dL (7-18); Bilirubin, Total 1.1 mg/dL (0.2-1.0); CO2 28.4 mmol/L (21.0-32.0); CREATININE 0.9 mg/dL (0.70-1.30); Calcium 8.7 mg/dL (8.5-10.1); Chloride 101 mmol/L (98-107); Glucose 95 mg/dL (74-106); Magnesium 1.9 mg/dL (1.8-2.4); Potassium 3.6 mmol/L (3.5-5.1); Sodium 136 mmol/L (136-145); Total Protein 7.6 g/dL (6.4-8.2); Troponin I < 50 ng/L (<or=60)
[2021-06-29 17:15] LABS: D-Dimer 117 ng/mlFEU (<500)
== END 2021-06-29 17:32 | disposition home or self-care (01) ==
PROVIDERS: Emergency Provider Registered Nurse Emergency; PCP Family Medicine
DX: M94.0 Chondrocostal junction syndrome [Tietze] (principal); R07.9 Chest pain, unspecified; F17.210 Nicotine dependence, cigarettes, uncomplicated
CPT/HCPCS: 36415; 80053; 93005; 99284; 71045; 83735; 84484; 85025; 85379; 93010; 99283

== ENCOUNTER 2023-04-06 17:08 | Emergency (ER) | payer SELFPAY ==
[2023-04-06 17:26] VITALS: BP 151/107; PULSE 86; RESP 16; TEMP 37.3; O2SAT 98
--- NOTE | 2023-04-06 17:51 | ED.GENADUL_ITS ---
Discharge Plan Disposition Patient Disposition: Home Condition: Good Discharge Details Clinical Impression: Overuse injury, Forearm pain Primary Care Provider: Octavio Vazquez ED Provider: Gabbie El Home Meds and New Rx's Prescriptions: No Action No Known Home Meds Discharge Instructions Instructions: Methocarbamol (By mouth), Muscle Spasm (ED) Additional Instructions: I am concerned that this is an overuse injury. Please stretch your arms as much as possible and continue to use them. Heat will also help to relax the muscles that spasm seems to be a component to this. Ice can help with discomfort. You may use the methocarbamol as prescribed, 1500 mg per dose but do not drive or drink alcohol while using this medication. Please keep this in a safe place. As we discussed, pressure over the area may also help to release these muscles. Please encourage hydration. Please follow-up with your primary care in 1 week. If you develop any new or worsening symptoms please seek care urgently once again. Please abstain from any heavy lifting until pain has improved. Referrals: Octavio Vazquez MD [Primary Care Provider] - Discharge Data Discharge Date/Time-TO BE ENTERED AT DEPARTURE: 04/06/23 19:10 Medical Decision Making Patient is a pleasant 32-year-old [id number] male presenting today with chief complaint of bilateral forearm pain. He reports that 2 days ago he did excessive lifting at the gym. Subsequently unloaded a heavy shipment at work of approximately 300 boxes yesterday. States that today he has been locked up and in severe pain associated with his bilateral upper extremities. This is primarily in the forearm. No weakness or difficulty with movements. He does find that full extension causes maximal pain in the forearm. He denies any trauma or injury. No break in the skin. No numbness or tingling. On exam, patient appears nontoxic. He is moving his arms fairly comfortably but is keeping them in a semiflexed position. He has no pain with range of motion of the shoulder. He is 2+ distal pulses. 5 out of 5 strength bilaterally in his upper extremities at both the elbow and wrist and hand. No sensory deficits or nerve dysfunction. He has no pain or weakness with supination or pronation against resistance. However, he is point tender mid forearm over the extensor surface. His primary concern is that he cannot take Tylenol or ibuprofen secondary to allergies. However, he states that he is done very well with Toradol in the past and is interested in having a shot now which we can give. He does not have any trauma and is otherwise young and healthy, I do not see need for imaging as I have very low suspicion for fracture or dislocation. Discussed this plan with the patient who is in agreement. Patient received topical lidocaine and Toradol and pain is improving. We discussed supportive care including heat and or ice, stretching, compression, massage. As there is a degree of spasm, will send home with methocarbamol as the patient cannot otherwise use [id number] ibuprofen or Tylenol. As he drove himself here, this is not offered to him initially. Advise that he should not drive or drink alcohol using this medication. I also encourage hydration. Return precautions discussed. Advise follow-up with primary care in 1 to 2 weeks for reevaluation. All his questions and concerns were addressed and he is in agreement this plan. HPI General Date/Time Provider Initiated Documentation: 04/06/23 17:51 . Limitations to Documentation: no limitations . Information obtained by: patient and RN notes reviewed . History of Present Illness 32 year old M presents to the emergency department with the chief complaint of Bilateral arm pain, described as severe, with intensity rated at 10. Quality is described as sharp and constant, and is localized to the left, right and upper extremity. Patient reports no radiation. Patient started experiencing this day(s) and it has been constant. Immobilization improves symptom(s), Movement worsens symptoms . Patient notes no other symptoms.. Patient did receive the following treatments prior to arrival, none Related Data Home Medications Medication Instructions Recorded Confirmed Unknown [No Known Home Meds] 06/29/21 06/29/21 Allergies Allergy/AdvReac Type Severity Reaction Status Date / Time acetaminophen Allergy Unknown SWOLLEN Verified 08/27/20 16:49 LIPS amoxicillin Allergy Verified 08/27/20 16:49 ibuprofen Allergy chest Verified 08/27/20 16:49 tightness naproxen sodium [From Aleve] Allergy HIVES Verified 08/27/20 16:49 General Stated Complaint: GenMedical DONNA: 3 Review of Systems Constitutional Constitutional: Reports as per HPI, Denies chills, Denies fever(s), Denies headache(s) and Denies weakness ENT Ears, Nose, Mouth, and Throat: Denies headache(s) Cardiovascular Cardiovascular: Reports as per HPI Respiratory Respiratory: Reports as per HPI and Denies cough Musculoskeletal Musculoskeletal: Reports as per HPI and Denies tingling Integumentary/Breasts Skin/Breast: Reports as per HPI, Denies rash and Denies wounds Neurologic Neurologic: Reports as per HPI, Denies headache(s), Denies tingling, Denies paresthesias and Denies weakness PFSH All Active Problems (Updated 04/06/23 @ 18:49 by JASON Rojas) Forearm pain (Acute) Overuse injury (Acute) COVID-19 (Acute ~06/26/22) Urethritis (Acute) Current smoker (Acute) Anxiety (Chronic) Nontraumatic shoulder pain (Acute) Achilles tendonitis (Acute) Plantar fasciitis (Acute) Tonsillar calculus (Chronic) Insomnia (Acute) Social History Smoking/Tobacco Use Status: Current every day Tobacco Type: cigarettes Smoking risk assessment performed?: Yes Alcohol Intake: current Alcohol Intake frequency: a few times a week Drug use: Occasionally Substance use type: marijuana Do you feel safe at home: Yes Do you feel safe in your relationship?: Yes Exam Const General: cooperative, healthy appearing, comfortable, no acute distress, well developed and well groomed Nutritional Appearance: average body habitus and well nourished Orientation: alert and awake Resp Effort & Inspection: normal respiratory effort, able to speak in complete sentences and no respiratory distress Cardio Rate: regular rate Rhythm: regular rhythm Skin General skin exam: no rashes or lesions noted Lesions: no lesions Rashes: no rashes Trauma: no lacerations or abrasions Neuro General: patient alert and patient awake Cognition: normal cognition Speech: speech normal Gait: normal gait Motor: muscle tone normal throughout Sensory Exam: no sensory deficits noted Extrem Elbow/forearm/wrist images: 2 1. Area of maximal discomfort bilaterally. No erythema, warmth, drainage. No evidence of trauma or discoloration. He has 2+ distal pulses. Neurologically intact distal to the areas in question. Able to supinate and pronate against resistance with full strength. No pain on palpation over the medial or lateral epicondyles bilaterally. Does have limited elbow extension as this causes increased pain in the specific area of the forearm. Patient does feel tight over this area, concern for tension or spasm. Psych Appearance: grossly normal and well kempt Mental Status: mental status grossly normal Speech and Movement: speech and movement normal Course Vital Signs Vital signs: Vital Signs Temperature 37.3 C 04/06/23 17:26 Pulse 86 04/06/23 17:26 Respiratory Rate 16 04/06/23 17:26 Blood Pressure 151/107 H 04/06/23 17:26 Pulse Oximetry 98 04/06/23 17:26 Temperature 37.3 C 04/06/23 17:26 Pulse 86 04/06/23 17:26 Respiratory Rate 16 04/06/23 17:26 Blood Pressure 151/107 H 04/06/23 17:26 Pulse Oximetry 98 04/06/23 17:26 Pain Level 10 04/06/23 17:26
[2023-04-06 18:07] VITALS: RESP 20
[2023-04-06] MEDS: Ketorolac 30 MG/ML VIAL IM (18:24)
[2023-04-06] MEDS: Methocarbamol 750 MG TAB 3000 MG PO (19:02)
== END 2023-04-06 19:10 | disposition home or self-care (01) ==
PROVIDERS: Emergency Provider Physician Assistant; PCP Family Medicine
DX: M79.631 Pain in right forearm (principal); M79.632 Pain in left forearm; X50.3XXA Overexertion from repetitive movements, initial encounter
CPT/HCPCS: 99283; J1885